=== PATIENT | male | born 1990 | race Caucasian/White ===

== ENCOUNTER 2016-12-25 23:13 | Inpatient (IN) | payer SELFPAY ==
[~2016-12-25] VITALS: Ht 175.3 cm; Wt 70.9 kg
[~2016-12-25 23:13] MED LIST: DEPAKOTE500 MG PO; KLONOPIN0.5 M1 PO; NOHOMEMEDS
[2016-12-26 01:02] LABS: HEMATOCRIT 51.2 % (38.0-50.0); MCH 29.9 PG (29.0-34.0); MCHC 34.4 G/DL (30.0-36.0); MCV 86.9 FL (86-99); MEAN PLAT.VOLUME 10.5 uM^3 (9.0-12.4); PLATELET COUNT 251 K/uL (156-360); RBC DIS.WIDTH-CV 11.9 % (11.8-14.6); RBC DIS.WIDTH-SD 38.5 % (39-53); RED BLOOD COUNT 5.89 M/uL (4.00-5.50); WHITE BLOOD COUNT 11.1 K/uL (4.1-10.2)
[2016-12-26 01:11] LABS: CHLORIDE 105 mEq/L (99-109); POTASSIUM 3.9 mEq/L (3.7-5.4); SODIUM 141 mEq/L (136-147)
[2016-12-26 01:12] LABS: BILIRUBIN NEGATIVE; BLOOD NEGATIVE; COLOR YELLOW ((YELLOW)); GLUCOSE (STRIP) NEGATIVE; KETONES NEGATIVE; LEUKOCYTES NEGATIVE; NITRITE NEGATIVE; PROTEIN (STRIP) NEGATIVE; SPECIFIC GRAVITY 1.024 (1.000-1.030); UROBILINOGEN 0.2 MG/DL (0.2-1.0)
[2016-12-26 01:13] LABS: GLUCOSE 107 mg/dL (70-99)
[2016-12-26 01:14] LABS: ANION GAP 10 MEQ/L (2-14)
[2016-12-26 01:15] LABS: TOTAL BILIRUBIN 0.5 mg/dL (0.0-1.0)
[2016-12-26 01:15] LABS: ADD MIUA? NO
[2016-12-26 01:16] LABS: SERUM ETHYL ALCOHOL < 10 mg/dL
[2016-12-26 01:17] LABS: ALKALINE PHOSPHATASE 62 IU/L (3-129); GFR ESTIMATE (CALCULATED) > 59 mL/min/
[2016-12-26 01:18] LABS: UREA NITROGEN (BUN) 13 mg/dL (9-23)
[2016-12-26 01:19] LABS: AMPHETAMINE NEGATIVE (500 ng/mL); BARBITURATES NEGATIVE (200 ng/mL); BENZODIAZEPINES NEGATIVE (150 ng/mL); COCAINE NEGATIVE (150 ng/mL); METHADONE NEGATIVE (200 ng/mL); METHAMPHETAMINE NEGATIVE (500 ng/mL); OPIATES (MORPHINE) NEGATIVE (100 ng/mL); OXYCODONE NEGATIVE (100 ng/mL); PHENCYCLIDINE NEGATIVE (25 ng/mL); PROPOXYPHENE NEGATIVE (300 ng/mL); THC CANNABINOIDS NEGATIVE (50 ng/mL); TRICYCLIC ANTIDEPRESSANTS NEGATIVE (300 ng/mL)
[2016-12-26 01:20] LABS: INTERNAL CONTROLS VALID? YES
[2016-12-26 05:19] VITALS: BP 140/88
[2016-12-26 07:47] VITALS: BP 128/80
[2016-12-26 15:22] VITALS: BP 137/84
[2016-12-27 08:17] VITALS: BP 121/68
[2016-12-27 15:47] VITALS: BP 120/64
[2016-12-28 07:24] VITALS: BP 112/62
[2016-12-28 15:20] VITALS: BP 121/77
[2016-12-29 07:46] VITALS: BP 119/72
[2016-12-29] MEDS ORDERED: MINIPRESS2 MG PO (10:38)
[2016-12-29] MEDS ORDERED: BUSPAR10 MG PO (10:38)
[2016-12-29] MEDS ORDERED: ZOLOFT100 MG PO (10:39)
[2016-12-29] MEDS ORDERED: TRAZODONE HCL50 MG PO (10:39)
== END 2016-12-29 13:00 | disposition home or self-care (01) | DRG 882 ==
LOC: EME 23:13 → EDOF 12-26 03:03 → 1WEST 12-26 03:03 → ENRESERV 12-26 05:17 → 1WEST 12-29 13:00
PROVIDERS: Emergency Medicine
DX: F43.10 Post-traumatic stress disorder, unspecified (principal); F33.2 Major depressive disorder, recurrent severe without psychotic features; R45.851 Suicidal ideations; F41.0 Panic disorder [episodic paroxysmal anxiety]; F12.90 Cannabis use, unspecified, uncomplicated; F11.90 Opioid use, unspecified, uncomplicated; G47.00 Insomnia, unspecified; Z62.810 Personal history of physical and sexual abuse in childhood; Z72.0 Tobacco use; Z91.410 Personal history of adult physical and sexual abuse; Z91.5 Personal history of self-harm; Z81.8 Family history of other mental and behavioral disorders
CPT/HCPCS: 80053; 81003; 85027; 90839; 97166 GO; 99281; 99285; G0480; Q0177